=== PATIENT | female | born 1950 | race Caucasian/White ===

== ENCOUNTER → 2016-11-09 | Outpatient (CLI) | payer OTHER | LOC: CIMAGING 14:50 | PROVIDERS: ATTEND Internal Medicine | DX: Z12.31 Encounter for screening mammogram for malignant neoplasm of breast (principal) | CPT/HCPCS: G0202 ==

== ENCOUNTER → 2016-12-09 | Outpatient (CLI) | payer OTHER | LOC: CIMAGING 13:51 → EDSTATUS 13:53 → CIMAGING 13:53 | PROVIDERS: ATTEND Internal Medicine | DX: S60.229D Contusion of unspecified hand, subsequent encounter (principal); S60.00XA Contusion of unspecified finger without damage to nail, initial encounter | CPT/HCPCS: 73140-PO ==

== ENCOUNTER → 2018-12-26 | Outpatient (CLI) | payer OTHER, MEDICARE | LOC: CLAB 13:20 ==